=== PATIENT | female | born 1950 | race Caucasian/White ===

== ENCOUNTER 2020-06-17 06:52 | Outpatient (NON) | payer MEDICARE, SELFPAY ==
[2020-06-17 23:09] LABS: SARS-CoV-2 RNA PCR Negative
== END 2020-06-17 06:53 ==
PROVIDERS: Visit Provider Student in an Organized Health Care Education/Training Program
DX: Z20.828 Contact with and (suspected) exposure to other viral communicable diseases (principal); R50.9 Fever, unspecified
CPT/HCPCS: 87635; C9803; U0003

== ENCOUNTER → 2021-10-04 09:46 | Outpatient (CLI) | payer MEDICARE, OTHER, SELFPAY ==
--- NOTE | ~2021-10-04 | US_ITS ---
EXAMINATION: US thyroid DATE: 10/04/2021 10:03 INDICATION: Nontoxic multinodular goiter. TECHNIQUE: Multiple ultrasound images of the thyroid were obtained. COMPARISON: Ultrasound 04/01/2019, 12/09/11 FINDINGS: The right thyroid lobe measures 5.3 x 4.4 x 1.2 cm. The left thyroid lobe measures 5.2 x 1.7 x 1.4 c m. In the left thyroid lobe, there is a 1.3 cm solid, hypoechoic, zorrf-psed-hmti nodule with lobula karine margin and punctate echogenic foci (TI-RADS TR5). In the right thyroid lobe, there is an 8 mm aniceto id, hypoechoic, wopgq-ythp-dfwa nodule with smooth margin and punctate echogenic foci (TR5). In the r ight thyroid lobe, there is a 5 mm solid, hypoechoic, ayulu-ozha-qmwy nodule with smooth margin and p unctate echogenic foci (TR5). IMPRESSION: 1. Multinodular goiter, stable from 12/09/11, likely benign. Reviewed, dictated and finalized at location A. [employer] CLERK
== END ==
PROVIDERS: PCP Student in an Organized Health Care Education/Training Program; Visit Provider Internal Medicine
DX: E04.2 Nontoxic multinodular goiter (principal)
CPT/HCPCS: 76536

== ENCOUNTER → 2022-03-30 10:05 | Outpatient (CLI) | payer MEDICARE, OTHER, SELFPAY ==
--- NOTE | ~2022-03-30 | MR_ITS ---
EXAMINATION: MR lumbar spine wo con DATE: 03/30/2022 10:37 INDICATION: Chronic right-sided low back pain with right-sided sciatica TECHNIQUE: Magnetic resonance imaging (MRI) of the lumbar spine was performed without intravenous con trast. Sequences included sagittal T2-weighted FSE, sagittal T2-weighted FS FSE, sagittal T1-weighted FSE, and axial T2-weighted FSE. COMPARISON: None FINDINGS: 10 degrees lumbar levocurvature. 2-3 mm retrolisthesis L3 on L4. Vertebral body heights are normal. M oderate right-sided predominant disc height loss at L2-L3 and L3-L4. Mild left-sided predominant disc height loss at L4-L5. Fibrovascular degenerative endplate changes at the right side of the L3-L4 dis c space. Marrow signal is otherwise normal. There are annular fissures at L2-L3 through L5-S1. The co nus medullaris terminates at L1-L2. There is normal signal in the caudal spinal cord. Tarlov cysts bi laterally at S2. Additional T2 hyperintense nerve root sheath cysts at the right neural foramen at T1 2-L1 and at the left-sided neural foramen at T10-T11 through L1-L2. Paravertebral soft tissues are ot herwise unremarkable. The following disc levels are specifically discussed: T12-L1 and L1-L2: The disc does not extend beyond the endplate margin. There is bilateral facet joint osteoarthritis. There is no neural foraminal stenosis. There is no central canal stenosis. L2-L3: Disc is bulging. There is mild bilateral facet joint osteoarthritis. There is mild bilateral n eural foraminal stenosis. There is mild central canal stenosis. L3-L4: Disc is bulging. There is mild right and minimal left facet joint osteoarthritis. There is mod erate bilateral neural foraminal stenosis. There is mild central canal stenosis. L4-L5: Disc is mildly bulging. There is mild bilateral facet joint osteoarthritis. There is mild bila teral neural foraminal stenosis. There is minimal central canal stenosis. L5-S1: Small left foraminal zone disc protrusion. There is severe bilateral facet joint osteoarthriti s. There is mild left and minimal right neural foraminal stenosis. There is mild central canal stenos is. IMPRESSION: 1. Mild lumbar levoscoliosis with moderate to severe spondylosis in the mid lumbar spine. Reviewed, dictated and finalized at location A. IMPRESSION: 1. Mild lumbar levoscoliosis with moderate to severe spondylosis in the mid lum bar spine.
== END ==
PROVIDERS: PCP Student in an Organized Health Care Education/Training Program; Visit Provider Student in an Organized Health Care Education/Training Program
DX: M54.41 Lumbago with sciatica, right side (principal); M47.817 Spondylosis without myelopathy or radiculopathy, lumbosacral region; M48.07 Spinal stenosis, lumbosacral region; G89.29 Other chronic pain
CPT/HCPCS: 72148

== ENCOUNTER 2024-04-19 09:32 | Outpatient (CLI) | payer MEDICARE, OTHER, SELFPAY ==
--- NOTE | ~2024-04-19 | US_ITS ---
EXAMINATION: US thyroid DATE: 04/19/2024 10:11 INDICATION: Thyroid nodule. TECHNIQUE: Multiple ultrasound images of the thyroid were obtained. COMPARISON: Ultrasound 10/04/2021, 12/09/2011 FINDINGS: The right thyroid lobe measures 5.4 x 1.9 x 1.3 cm. The left thyroid lobe measures 4.5 x 1.8 x 1.3 c m. In the left thyroid lobe, there is a 13 mm solid, hypoechoic wider than tall nodule with lobulate d margin and punctate echogenic foci (TI-RADS TR5). In the right thyroid lobe, there is a 8 mm solid, hypoechoic, wider than tall nodule with smooth margin and punctate echogenic foci (TR5). In the righ t thyroid lobe, there is a 5 mm solid, hypoechoic, wider than tall nodule with smooth margin and punc stover echogenic foci (TR5). IMPRESSION: 1. Multinodular goiter, stable from 12/09/2011, likely benign. No follow-up is needed. Reviewed, dictated and finalized at location A. IMPRESSION: 1. Multinodular goiter, stable from 12/09/2011, likely benign. No follow-up is n eeded.
== END 2024-04-19 09:33 | disposition home or self-care (01) ==
PROVIDERS: PCP Student in an Organized Health Care Education/Training Program; Visit Provider Student in an Organized Health Care Education/Training Program
DX: E04.2 Nontoxic multinodular goiter (principal)
CPT/HCPCS: 76536